=== PATIENT | male | born 1990 ===

== ENCOUNTER 2018-08-07 17:29 | Emergency (ER) ==
[~2018-08-07] VITALS: Ht 182.9 cm; Wt 105.0 kg
[2018-08-07] MEDS ORDERED: TRILEPTAL 150M150 MG PO (17:47)
== END 2018-08-07 18:58 | disposition home or self-care (01) ==
LOC: COL.ER 17:29
DX: S61.211A Laceration without foreign body of left index finger without damage to nail, initial encounter (principal); Z23 Encounter for immunization; W26.8XXA Contact with other sharp object(s), not elsewhere classified, initial encounter; Y92.009 Unspecified place in unspecified non-institutional (private) residence as the place of occurrence of the external cause